=== PATIENT | male | born 1955 | race Caucasian/White ===

== ENCOUNTER 2021-01-03 00:59 | Emergency (ER) | payer MEDICARE ==
[2021-01-03] MEDS ORDERED: Etomidate 2 MG/ML 10 ML SDV IVPUSH ONE (01:02)
[2021-01-03] MEDS ORDERED: fentaNYL 100 MCG/2 ML SDV IVPUSH ONE (01:03)
--- NOTE | 2021-01-03 01:04 | EDM.PDOC ---
ED HPI GENERAL MEDICAL PROBLEM - General Chief Complaint: Lower Extremity Injury/Pain Stated Complaint: MEDICAL VIA STONEWALL Time Seen by Provider: 01/03/21 01:00 Source of Information: Reports: Patient, EMS History Limitations: Reports: No Limitations - History of Present Illness INITIAL COMMENTS - FREE TEXT/NARRATIVE: Tao is a 66-year-old male presenting to the ED via [facility] for evaluation and treatment of a dislocated prosthetic left hip joint. The patient was in his usual state of health tonight when after he took his shower he bent over to moss picker a small tool for his computer causing the hip to dislocate. Patient has been having problems with his hip dislocating and states he usually is able to reduce it himself by locking his foot into a piece of furniture and crawling forward thereby pulling the him back down. He tried this and unfortunately it was unsuccessful. The hip dislocated approximately 3 hours prior to arrival to the ED. The patient last ate at 1830 hours. Patient states that his orthopedic surgeon from the [facility] was considering replacing the hip as this becomes more frequent a problem. [place] any distal numbness or tingling. He denies any other symptoms. Left Hip Pain Score (Numeric/FACES): 9 - Related Data Allergies Allergy/AdvReac Type Severity Reaction Status Date / Time No Known Allergies Allergy Verified 01/03/21 01:03 Home Meds: Home Meds . [Unable to Verify Home Med List] 01/03/21 [History] Review of Systems - Review of Systems Review Of Systems: See Below Constitutional: Reports: No Symptoms Eyes: Reports: No Symptoms Ears: Reports: No Symptoms Nose: Reports: No Symptoms Mouth/Throat: Reports: No Symptoms Respiratory: Reports: No Symptoms Cardiovascular: Reports: No Symptoms GI/Abdominal: Reports: No Symptoms Genitourinary: Reports: No Symptoms Musculoskeletal: Reports: Joint Pain (Dislocated prosthetic left hip) Skin: Reports: No Symptoms Neurological: Reports: No Symptoms Psychiatric: Reports: No Symptoms ED EXAM, GENERAL - Physical Exam Exam: See Below Exam Limited By: No Limitations General Appearance: Alert, Mild Distress Eye Exam: Bilateral Eye: EOMI, PERRL Throat/Mouth: Normal Inspection Head: Atraumatic, Normocephalic Neck: Normal Inspection, Supple Respiratory/Chest: No Respiratory Distress, Lungs Clear, Normal Breath Sounds Cardiovascular: Normal Peripheral Pulses, Regular Rate, Rhythm, No Murmur Peripheral Pulses: 2+: Radial (L), Radial (R), Posterior Tibial (L), Posterior Tibial (R) GI/Abdominal: Normal Bowel Sounds, Soft, Non-Tender, No Distention Extremities: Limited Range of Motion (Limited range of motion of the left hip which appears to be shortened. Significant pain with movement in any direction.) Neurological: Alert, Oriented, Normal Cognition, No Motor/Sensory Deficits ED TRAUMA EXTREMITY PROCEDURES - Joint Reduction Left Hip Sedation: Conscious Sedation Pre-Procedure NV Status: Normal Post-Procedure NV Status: Normal Technique: Traction/Counter Traction Number of Attempts: 2 Post-Reduction Imaging: Completely Reduced Joint Reduction Complications: No Progress/Comments: Don, DENIS provided anesthesia with propofol to allow for the reduction of the hip. Patient was monitored during the procedure. The procedure was done in radiology with fluoroscopy. I was able to reduce the hip with complete flexion at the joint and traction countertraction with rotation. Reduction was confirmed by fluoroscopy. The patient was recovered in the ER. There were no complications. Course - Vital Signs Last Recorded V/S: Last Vital Signs Temp 35.2 C L 01/03/21 03:28 Pulse 70 01/03/21 04:40 Resp 18 01/03/21 04:40 BP 174/89 H 01/03/21 04:40 Pulse Ox 95 01/03/21 04:40 - Orders/Labs/Meds Orders: Active Orders 24 hr Category Date Time Status Fluoro Up To 1Hr [CR] Stat Exams 01/03/21 01:20 Taken Meds: Medications Discontinued Medications Generic Name Dose Route Start Last Admin Trade Name Josafatq PRN Reason Stop Dose Admin Etomidate 40 mg 01/03/21 01:02 01/03/21 03:30 Etomidate 2 Mg/Ml 10 Ml Sdv IVPUSH 01/03/21 01:03 Not Given ONETIME ONE Fentanyl 100 mcg 01/03/21 01:03 01/03/21 01:13 Fentanyl 100 Mcg/2 Ml Sdv IVPUSH 01/03/21 01:04 100 mcg ONETIME ONE Administration Ketorolac Tromethamine 30 mg 01/03/21 04:56 01/03/21 05:07 Ketorolac 30 Mg/Ml Sdv IVPUSH 01/03/21 04:57 30 mg ONETIME ONE Administration Propofol Confirm 01/03/21 02:27 Propofol 200 Mg/20 Ml Sdv Administered 01/03/21 02:28 Dose 400 mg .ROUTE .STK-MED ONE - Re-Assessments/Exams Free Text/Narrative Re-Assessment/Exam: 01/03/21 04:57 patient was recovered in the emergency room and is back to his baseline. He is able to stand and ambulate although his hip does hurt a bit. He was given Toradol 30 mg IV for pain. At this time he suitable for discharge home in satisfactory condition. Indications to return were discussed. Departure - Departure Time of Disposition: 06:06 Disposition: Home, Self-Care 01 Clinical Impression: Recurrent dislocation of left hip - Discharge Information Instructions: Hip Pain Referrals: PCP,None [Primary Care Provider] - Forms: ED Department Discharge Care Plan Goals: Have successfully reduced your left hip prosthesis. May be a little sore and stiff over the next day or 2. Follow-up as soon as possible with your orthopedic surgeon to discuss the increasing frequency of dislocation of the hip. Return to the ED should you develop any additional problems. Sepsis Event Note (ED) - Focused Exam Vital Signs: Vital Signs Temp Pulse Resp BP Pulse Ox 01/03/21 04:40 70 18 174/89 H 95 01/03/21 03:40 60 14 165/83 H 95 01/03/21 03:28 35.2 C L 63 22 H 165/92 H 95 01/03/21 02:40 61 15 146/83 H 95 01/03/21 02:35 35.7 C L 62 14 112/85 97 01/03/21 01:01 35.2 C L 63 22 H 165/92 H 95 - Problem List & Annotations (1) Recurrent dislocation of left hip SNOMED Code(s): 810637672 Code(s): M24.452 - RECURRENT DISLOCATION, LEFT HIP Status: Acute Priority: Medium Current Visit: Yes - Problem List Review Problem List Initiated/Reviewed/Updated: Yes - My Orders Last 24 Hours: My Active Orders 01/03/21 01:20 Fluoro Up To 1Hr [CR] Stat - Assessment/Plan Last 24 Hours: My Active Orders 01/03/21 01:20 Fluoro Up To 1Hr [CR] Stat
[2021-01-03] MEDS ORDERED: Propofol 200 MG/20 ML SDV ONE (02:27)
[2021-01-03] MEDS ORDERED: Ketorolac 30 MG/ML SDV IVPUSH ONE (04:56)
== END 2021-01-03 09:47 | disposition home or self-care (01) ==
LOC: EDSEX 00:59 → JP.ED 00:59
DX: M24.452 Recurrent dislocation, left hip (principal)
CPT/HCPCS: 27265; 76000; 96374; 96375; 99283; J1885; J2704; J3010; 27252; 99284

== ENCOUNTER 2021-06-17 07:02 | Day surgery (SDC) | payer MEDICARE ==
[~2021-06-17 07:02] MED LIST: Lidocaine 1% with EPINEPHrine 1:100,000 50 ML MDV ONE; Sodium Tetradecyl Sulfate 1% 20 MG/2 ML SDV ONE
[2021-06-17] MEDS ORDERED: Propofol 200 MG/20 ML SDV ONE ×3 (07:07→09:05)
[2021-06-17] MEDS ORDERED: Midazolam 1 MG/ML 2 ML SDV ONE ×2 (07:07→08:46)
[2021-06-17] MEDS ORDERED: fentaNYL 100 MCG/2 ML SDV ONE (07:07)
[2021-06-17] MEDS ORDERED: Sodium Chloride 0.9% 1,000 ML IV SCH (08:00)
[2021-06-17] MEDS ORDERED: Sodium Chloride 0.9% 10 ML ONE (08:45)
[2021-06-17] MEDS: Lidocaine 1% w/EPINEPHrine 50 ML, Sodium Bicarbonate 5 MEQ in Sodium Chloride 0.9% 950 ML INJECT SCH (08:56)
[2021-06-17] MEDS ORDERED: Sodium Tetradecyl Sulfate 1% 20 MG/2 ML SDV INJECT ONE (09:07)
[2021-06-17] MEDS ORDERED: Sodium Chloride 0.9% 10 ML SDV ONE (09:07)
[2021-06-17] MEDS ORDERED: Lidocaine 1% with EPINEPHrine 1:100,000 50 ML MDV INJECT ONE ×2 (09:10)
--- NOTE | 2021-06-17 11:22 | OR ---
DATE OF PROCEDURE: 06/17/2021 SURGEON: Abundio Encarnacion MD PROCEDURES: 1. Radiofrequency ablation of left greater saphenous vein. 2. Radiofrequency ablation of right greater saphenous vein. 3. Sclerotherapy, left leg, multiple. 4. Sclerotherapy, right leg, multiple. 5. Compression wrap, left leg ([id number]). 6. Compression wrap, right leg ([id number]). COMPLICATIONS: None. WALLCOVERING TEXTURER: None. ANESTHESIA: MAC. PREOPERATIVE DIAGNOSIS: Venous insufficiency with inflammation and painful venous ulcers. POSTOPERATIVE DIAGNOSIS: Venous insufficiency with inflammation and painful venous ulcers. RISKS: Risks, benefits, alternatives including but not limited to infection, bleeding, DVT formation, chronic wounds, chronic pain, numbness, damage to skin and other risks not listed here were explained to the patient and he wished to proceed. PROCEDURE IN DETAIL: The patient was placed in supine position. Left greater saphenous vein was accessed at the level of the ankle. This was accessed using a 21-gauge needle, then exchanged for a 35,000th wire, then exchanged for a 7-[place] sheath. RFA probe was advanced to greater than 3 cm from the saphenofemoral junction and a tumescent fluid was injected in a 1 cm jacket around this. Both legs were noted to be very superficial with respect to the greater saphenous anatomy. This was then verified a second and third time with tumescent fluid. Direct even pressure was held as the probe was deployed x2 proximally and distally and x1 in all other segments. Sheath and probe removed. Direct pressure was held for 7 minutes. Dermabond was applied. The other leg was then performed in a same manner, same fashion, same technique in the same sequence using the same equipment. This was also very superficial. Sclerotherapy was then performed using 0.33% sodium tetradactyl. There were 4 on the right, 3 on the left. This was drawn back to ensure intravascular injection only. No more than 2 mm was injected in 1 location. Two-layer, 2-stage compression wrap was performed in a [id number] confirmation in a distal to proximal gradient. The patient tolerated the procedure well. Abundio Encarnacion MD /[id number]
== END 2021-06-17 10:35 | disposition home or self-care (01) ==
LOC: JP.SDS 07:02
PROVIDERS: ATTEND Surgery
DX: I87.2 Venous insufficiency (chronic) (peripheral) (principal); I83.209 Varicose veins of unspecified lower extremity with both ulcer of unspecified site and inflammation; L97.919 Non-pressure chronic ulcer of unspecified part of right lower leg with unspecified severity; L97.929 Non-pressure chronic ulcer of unspecified part of left lower leg with unspecified severity; I10 Essential (primary) hypertension; I25.10 Atherosclerotic heart disease of native coronary artery without angina pectoris; G47.33 Obstructive sleep apnea (adult) (pediatric)
CPT/HCPCS: 36471; 36475; J1642; J2250; J2704; J3010; J7030; U0002; J3490

== ENCOUNTER 2022-03-02 14:43 | Emergency (ER) | payer MEDICARE ==
[2022-03-02] MEDS ORDERED: Ketorolac 30 MG/ML SDV IVPUSH ONE (15:08)
[2022-03-02] MEDS ORDERED: Propofol 200 MG/20 ML SDV ONE (15:21)
== END 2022-03-02 16:42 | disposition home or self-care (01) ==
LOC: JP.ED 14:43
DX: S73.005A Unspecified dislocation of left hip, initial encounter (principal); I25.10 Atherosclerotic heart disease of native coronary artery without angina pectoris; I25.2 Old myocardial infarction; E78.00 Pure hypercholesterolemia, unspecified; I10 Essential (primary) hypertension; E11.9 Type 2 diabetes mellitus without complications; E66.9 Obesity, unspecified; Z68.30 Body mass index [BMI] 30.0-30.9, adult; Z79.899 Other long term (current) drug therapy; Z79.82 Long term (current) use of aspirin; Z79.84 Long term (current) use of oral hypoglycemic drugs; Z91.048 Other nonmedicinal substance allergy status; Z88.8 Allergy status to other drugs, medicaments and biological substances; Z91.013 Allergy to seafood; Z91.041 Radiographic dye allergy status; Z88.6 Allergy status to analgesic agent; Z88.5 Allergy status to narcotic agent; X58.XXXA Exposure to other specified factors, initial encounter
CPT/HCPCS: 27250; 73501; 96374; 99283; J1885; J2704; 27266

== ENCOUNTER 2022-03-03 14:15 | Emergency (ER) | payer MEDICARE ==
[2022-03-03] MEDS ORDERED: Ketorolac 30 MG/ML SDV IVPUSH ONE (14:48)
[2022-03-03] MEDS ORDERED: Propofol 200 MG/20 ML SDV ONE (15:47)
== END 2022-03-03 16:11 | disposition home or self-care (01) ==
LOC: JP.ED 14:15
DX: M24.452 Recurrent dislocation, left hip (principal); I25.10 Atherosclerotic heart disease of native coronary artery without angina pectoris; E78.00 Pure hypercholesterolemia, unspecified; I10 Essential (primary) hypertension; I25.2 Old myocardial infarction; N40.0 Benign prostatic hyperplasia without lower urinary tract symptoms; M19.90 Unspecified osteoarthritis, unspecified site; E11.9 Type 2 diabetes mellitus without complications; E66.9 Obesity, unspecified; Z68.38 Body mass index [BMI] 38.0-38.9, adult; Z91.048 Other nonmedicinal substance allergy status; Z91.041 Radiographic dye allergy status; Z88.8 Allergy status to other drugs, medicaments and biological substances; Z88.5 Allergy status to narcotic agent; Z91.030 Bee allergy status; Z79.82 Long term (current) use of aspirin; Z79.84 Long term (current) use of oral hypoglycemic drugs; Z79.899 Other long term (current) drug therapy
CPT/HCPCS: 27266; 73501; 96374; 99283; 99284; J1885; J2704

== ENCOUNTER 2022-05-13 16:48 | Emergency (ER) | payer MEDICARE ==
[2022-05-13] MEDS ORDERED: Sodium Chloride 0.9% 10 ML Syringe FLUSH PRN ×2 (16:59)
[2022-05-13] MEDS ORDERED: Ondansetron 4 MG/2 ML SDV IVPUSH ONE (17:15)
[2022-05-13] MEDS ORDERED: fentaNYL 100 MCG/2 ML SDV IVPUSH ONE ×2 (17:15→17:54)
[2022-05-13] MEDS ORDERED: fentaNYL 100 MCG/2 ML SDV ONE (17:16)
[2022-05-13] MEDS ORDERED: Tranexamic Acid 1,000 MG in Sodium Chloride 0.9% 100 ML IV ONE (17:18)
[2022-05-13 17:25] LABS: ESTIMATED GFR 75 mL/min (>60)
[2022-05-13] MEDS ORDERED: Diphtheria,Pertussis(Acell),Tetanus Vaccine 0.5 ML Syringe IM ONE (17:42)
[2022-05-13] MEDS ORDERED: Tranexamic Acid 1,000 MG in Sodium Chloride 0.9% 500 ML IV ONE (17:53)
== END 2022-05-13 18:00 ==
LOC: JP.ED 16:48
DX: S00.12XA Contusion of left eyelid and periocular area, initial encounter (principal); S20.212A Contusion of left front wall of thorax, initial encounter; R04.0 Epistaxis; H73.893 Other specified disorders of tympanic membrane, bilateral; I25.10 Atherosclerotic heart disease of native coronary artery without angina pectoris; E78.00 Pure hypercholesterolemia, unspecified; I10 Essential (primary) hypertension; I25.2 Old myocardial infarction; M19.90 Unspecified osteoarthritis, unspecified site; E11.9 Type 2 diabetes mellitus without complications; E66.9 Obesity, unspecified; Z68.39 Body mass index [BMI] 39.0-39.9, adult; Z91.048 Other nonmedicinal substance allergy status; Z88.8 Allergy status to other drugs, medicaments and biological substances; Z88.5 Allergy status to narcotic agent; Z91.041 Radiographic dye allergy status; Z79.82 Long term (current) use of aspirin; Z79.84 Long term (current) use of oral hypoglycemic drugs; Z79.899 Other long term (current) drug therapy; W18.30XA Fall on same level, unspecified, initial encounter
CPT/HCPCS: 36415; 71045; 80053; 85025; 85610; 85730; 93005; 96374; 96375; 96376; 99285; J2405; J3010; J3490; J7040; 90471

== ENCOUNTER 2022-07-29 11:36 | Emergency (ER) | payer MEDICARE ==
[2022-07-29] MEDS ORDERED: Propofol 200 MG/20 ML SDV IVPUSH ONE (11:59)
[2022-07-29] MEDS ORDERED: fentaNYL 100 MCG/2 ML SDV IVPUSH ONE (11:59)
[2022-07-29] MEDS ORDERED: Propofol 200 MG/20 ML SDV ONE (12:27)
== END 2022-07-29 13:32 | disposition home or self-care (01) ==
LOC: JP.ED 11:36
DX: S73.005A Unspecified dislocation of left hip, initial encounter (principal); I25.10 Atherosclerotic heart disease of native coronary artery without angina pectoris; E78.00 Pure hypercholesterolemia, unspecified; I10 Essential (primary) hypertension; E11.9 Type 2 diabetes mellitus without complications; E66.9 Obesity, unspecified; Z68.34 Body mass index [BMI] 34.0-34.9, adult; Z91.041 Radiographic dye allergy status; Z91.048 Other nonmedicinal substance allergy status; Z88.1 Allergy status to other antibiotic agents; Z88.5 Allergy status to narcotic agent; Z91.013 Allergy to seafood; Z79.82 Long term (current) use of aspirin; Z79.899 Other long term (current) drug therapy; X50.1XXA Overexertion from prolonged static or awkward postures, initial encounter
CPT/HCPCS: 27265; 73501; 96374; 99284; J2704; J3010; 27250

== ENCOUNTER 2024-09-03 09:08 | Day surgery (SDC) | payer MEDICARE, OTHER ==
[2024-09-03] MEDS ORDERED: fentaNYL 50 MCG/ML SDV ONE (09:46)
[2024-09-03] MEDS ORDERED: Midazolam 1 MG/ML 2 ML SDV ONE (09:46)
[2024-09-03] MEDS ORDERED: Propofol 200 MG/20 ML SDV ONE (09:47)
[2024-09-03] MEDS: Lactated Ringers 1,000 ML IV SCH (10:10)
== END 2024-09-03 13:00 | disposition home or self-care (01) ==
LOC: JP.SDS 09:08
PROVIDERS: ATTEND Surgery
DX: Z12.11 Encounter for screening for malignant neoplasm of colon (principal); I10 Essential (primary) hypertension; E78.5 Hyperlipidemia, unspecified; E10.9 Type 1 diabetes mellitus without complications; E66.9 Obesity, unspecified
CPT/HCPCS: G0121; J2250; J2704; J3010; J7120